=== PATIENT | female | born 1965 | race Caucasian/White ===

== ENCOUNTER 2021-07-04 12:45 | Outpatient (CLI) | payer OTHER, SELFPAY ==
--- NOTE | 2021-07-04 13:19 | US_ITS ---
WS: [id number] INDICATION: Bell's cyst. TECHNIQUE: Ultrasound area of concern RIGHT popliteal fossa. FINDINGS: Ultrasound popliteal fossa. Lobulated popliteal cyst with some internal debris. Popliteal c yst measures approximately 3.6 x 3.0 x 4.9 cm with a small amount of internal debris. Additional moderate fluid collection labeled anterior lateral RIGHT knee likely within the suprapatel lar bursa US/US soft tissue/extremity [id number] IMPRESSION: 1. Lobulated popliteal cyst measuring approximately 3.6 x 3.0 x 4.9 cm with a small amount of internal debris. 2. Additional fluid collection along the anterior lateral knee likely within t he suprapatellar bursa measuring approximately 1.0 x 5.0 x 1.5 CM compatible wi th a moderate effusion.
== END 2021-07-04 12:46 | disposition home or self-care (01) ==
PROVIDERS: Visit Provider Nurse Practitioner Family
DX: M71.21 Synovial cyst of popliteal space [Baker], right knee (principal); R93.7 Abnormal findings on diagnostic imaging of other parts of musculoskeletal system
CPT/HCPCS: 76882